=== PATIENT | male | born 1940 | race Caucasian/White ===

== ENCOUNTER → 2019-03-20 | Outpatient (CLI) | payer MEDICARE | LOC: CARD 10:02 | PROVIDERS: ATTEND Family Medicine | DX: Z01.810 Encounter for preprocedural cardiovascular examination (principal); I08.1 Rheumatic disorders of both mitral and tricuspid valves | CPT/HCPCS: 93306 ==

== ENCOUNTER → 2019-04-27 | Outpatient (CLI) | payer MEDICARE, BC ==
--- NOTE | 2019-04-27 10:55 | Diagnostic Imaging Report ---
CLINICAL INDICATION: Patient with right shoulder pain. EXAM: X-ray of the shoulder, three views. COMPARISON: None. FINDINGS: There is no acute fracture or dislocation. There are small chronic appearing calcifications seen lateral and superior to the right humeral head which may be related to calcific tendinitis or chronic soft tissue calcifications. There is significant bony irregularity involving the proximal humeral tuberosity region. Bone anchors are seen involving the proximal humerus from postop changes. There is narrowing of the interval between the humeral head and acromion. There is lateral spurring of the right acromion. There is inferior spurring of the lateral aspect of the right clavicle. There are degenerative spurs involving the glenoid. IMPRESSION: 1: There is no acute fracture or dislocation. 2: Postop changes to the right shoulder are noted. 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 Dictated by: Dictated on workstation # [id number]
== END ==
LOC: RAD FS 10:27
PROVIDERS: ATTEND Nurse Practitioner
DX: M19.011 Primary osteoarthritis, right shoulder (principal)
CPT/HCPCS: 73030

== ENCOUNTER → 2019-05-19 | Outpatient (CLI) | payer MEDICARE, BC ==
--- NOTE | 2019-05-19 17:05 | Diagnostic Imaging Report ---
EXAMINATION: Magnetic resonance imaging of the right shoulder without contrast. DATE: May 19, 2019. COMPARISON: Right shoulder radiographs April 27, 2019. HISTORY: 78-year-old male, chronic right shoulder pain. TECHNIQUE: Magnetic Resonance Imaging sequences were performed of the shoulder without contrast. FINDINGS: ROTATOR CUFF, LIGAMENTS, TENDONS, AND MUSCLES: There are procedural tracks in the distribution of the supraspinatus tendon insertion likely relating to prior rotator cuff tendon repair. There are full thickness full width tears of both the supraspinatus and infraspinatus tendons. The teres minor tendon is intact. The subscapularis tendon is grossly intact. There is severe fatty atrophy of the supraspinatus and infraspinatus muscles. LONG HEAD OF BICEPS: There is nonvisualization of the long head of biceps tendon within its intra-articular segment. The biceps tendon is present within the bicipital groove. The long head of biceps tendon may be potentially torn and retracted at this level. Correlation for potential biceps tenodesis may be helpful, as well. GLENOHUMERAL JOINT: There is very limited labral evaluation on this exam given lack of fluid sensitive axial sequence. There is no obvious labral tear. There is likely some blunting and degenerative related labral change. There is mild generalized glenohumeral cartilage thinning. The humeral head is superiorly subluxed. There is no identified paralabral cyst. There is no joint effusion. ACROMIOCLAVICULAR JOINT: The acromioclavicular joint is normally aligned. There is productive bone formation in the distribution of the coracoclavicular ligament compatible with sequela from remote prior injury. There are mild to moderate acromioclavicular degenerative changes without large undersurface osteophyte. BONE: There is no os acromiale. There is no acute fracture, bone contusion, or evidence of osteonecrosis. BURSAE AND SOFT TISSUES: The bursae and soft tissue surrounding the shoulder are unremarkable. IMPRESSION: 1. Full-thickness full width tears of the supraspinatus and infraspinatus tendons with severe fatty atrophy of both muscles. 2. Lack of visualization of the intra-articular segment of the long head of biceps tendon which may be torn and retracted within the bicipital groove. Correlation for potential biceps tenodesis also recommended. 3. Mild to moderate acromioclavicular degenerative changes without large undersurface osteophyte. 4. Mild glenohumeral arthritis. No glenohumeral joint effusion. The humeral head is superiorly subluxed. 5. No acute fracture, bone contusion, or evidence of osteonecrosis. Dictated by: Dictated on workstation # [id number]
== END ==
LOC: RAD 14:22
PROVIDERS: ATTEND Nurse Practitioner
DX: M19.011 Primary osteoarthritis, right shoulder (principal); M75.101 Unspecified rotator cuff tear or rupture of right shoulder, not specified as traumatic; Z98.890 Other specified postprocedural states
CPT/HCPCS: 73221

== ENCOUNTER → 2019-10-20 | Outpatient (CLI) | payer MEDICARE, BC ==
[2019-10-20 11:07] LABS: ALBUMIN 4.4 GM/DL (3.2-4.5); BILIRUBIN,TOTAL 0.4 MG/DL (0.1-1.0); CALCIUM 9.5 MG/DL (8.5-10.1); CREATININE SERUM 2.08 MG/DL (0.60-1.30); POTASSIUM 4.6 MMOL/L (3.6-5.0); TOTAL PROTEIN 6.9 GM/DL (6.4-8.2)
== END ==
LOC: LAB FS 10:09
PROVIDERS: ATTEND Family Medicine
DX: E78.5 Hyperlipidemia, unspecified (principal)
CPT/HCPCS: 36415; 80053; 80061

== ENCOUNTER → 2020-04-22 | Outpatient (CLI) | payer MEDICARE, BC ==
[2020-04-22 11:28] LABS: BILIRUBIN,TOTAL 0.4 MG/DL (0.1-1.0); CALCIUM 9.3 MG/DL (8.5-10.1); CREATININE SERUM 1.87 MG/DL (0.60-1.30); POTASSIUM 4.3 MMOL/L (3.6-5.0)
[2020-04-22 11:29] LABS: ALBUMIN 4.1 GM/DL (3.2-4.5); TOTAL PROTEIN 6.6 GM/DL (6.4-8.2)
== END ==
LOC: LAB FS 09:34
PROVIDERS: ATTEND Family Medicine
DX: E78.00 Pure hypercholesterolemia, unspecified (principal); R73.9 Hyperglycemia, unspecified
CPT/HCPCS: 36415; 80053; 80061; 83036

== ENCOUNTER → 2020-07-05 | Outpatient (CLI) | payer MEDICARE, BC ==
[2020-07-05 13:43] LABS: BILIRUBIN,URINE NEGATIVE (NEGATIVE); CLARITY,URINE CLEAR; COLOR,URINE YELLOW; GLUCOSE, URINE (UA) NEGATIVE (NEGATIVE); KETONES,URINE NEGATIVE (NEGATIVE); LEUKOCYTE ESTERASE ,URINE NEGATIVE (NEGATIVE); NITRITE,URINE NEGATIVE (NEGATIVE); PH,URINE NEG (5-9); PROTEIN,URINE NEGATIVE (NEGATIVE); SQUAMOUS EPITHELIAL CELL,UR RARE /HPF
[2020-07-05 13:47] LABS: HEMOGLOBIN 12.6 G/DL (13.3-17.7); MEAN PLATELET VOLUME 9.5 FL (7.4-10.4); WHITE BLOOD COUNT 5.5 10^3/uL (4.3-11.0)
[2020-07-05 15:29] LABS: PHOSPHORUS 3.4 MG/DL (2.3-4.7)
[2020-07-05 15:32] LABS: URIC ACID 7.6 MG/DL (2.6-7.2)
[2020-07-05 15:52] LABS: POTASSIUM 4.2 MMOL/L (3.6-5.0)
[2020-07-05 15:53] LABS: ALBUMIN 4.3 GM/DL (3.2-4.5); CREATININE SERUM 1.81 MG/DL (0.60-1.30); MAGNESIUM 2.2 MG/DL (1.6-2.4)
[2020-07-05 23:00] LABS: URINE CREATININE FOR RATIO 19 MG/DL (30-125)
[2020-07-05 23:01] LABS: URINE PROTEIN FOR RATIO ONLY < 6 MG/DL (6-12)
== END ==
LOC: LAB FS 13:09
PROVIDERS: ATTEND Family Medicine
DX: I12.9 Hypertensive chronic kidney disease with stage 1 through stage 4 chronic kidney disease, or unspecified chronic kidney disease (principal); N18.30 Chronic kidney disease, stage 3 unspecified; N14.0 Analgesic nephropathy; E55.9 Vitamin D deficiency, unspecified; R60.9 Edema, unspecified
CPT/HCPCS: 36415; 80069; 81000; 82306; 82570; 83735; 83970; 84156; 84550; 85027

== ENCOUNTER → 2020-10-24 | Outpatient (CLI) | payer MEDICARE, BC ==
[2020-10-24 09:21] LABS: POTASSIUM 4.1 MMOL/L (3.6-5.0)
[2020-10-24 09:22] LABS: ALBUMIN 4.2 GM/DL (3.2-4.5); BILIRUBIN,TOTAL 0.4 MG/DL (0.1-1.0); CALCIUM 9.1 MG/DL (8.5-10.1); TOTAL PROTEIN 6.6 GM/DL (6.4-8.2)
== END ==
LOC: LAB FS 08:19
PROVIDERS: ATTEND Family Medicine
DX: I10 Essential (primary) hypertension (principal); R73.9 Hyperglycemia, unspecified
CPT/HCPCS: 36415; 80053; 80061; 83036

== ENCOUNTER → 2021-01-11 | Outpatient (CLI) | payer MEDICARE, BC ==
[2021-01-11 10:53] LABS: HEMATOCRIT 36 % (40-54); HEMOGLOBIN 12.3 G/DL (13.3-17.7); MEAN CORPUSCULAR HEMOGLOBIN 32 PG (25-34); MEAN CORPUSCULAR HGB CONC 34 G/DL (32-36); MEAN CORPUSCULAR VOLUME 93 FL (80-99); MEAN PLATELET VOLUME 9.8 FL (7.4-10.4); PLATELET COUNT 254 10^3/uL (130-400); WHITE BLOOD COUNT 6.4 10^3/uL (4.3-11.0)
[2021-01-11 10:57] LABS: BACTERIA,URINE NEGATIVE /HPF; BILIRUBIN,URINE NEGATIVE (NEGATIVE); CLARITY,URINE CLEAR; COLOR,URINE YELLOW; GLUCOSE, URINE (UA) NEGATIVE (NEGATIVE); KETONES,URINE NEGATIVE (NEGATIVE); LEUKOCYTE ESTERASE ,URINE NEGATIVE (NEGATIVE); NITRITE,URINE NEGATIVE (NEGATIVE); PROTEIN,URINE NEGATIVE (NEGATIVE)
[2021-01-11 11:10] LABS: ALBUMIN 4.2 GM/DL (3.2-4.5); CALCIUM 9.7 MG/DL (8.5-10.1); CREATININE SERUM 2.44 MG/DL (0.60-1.30); MAGNESIUM 2.1 MG/DL (1.6-2.4); POTASSIUM 4.5 MMOL/L (3.6-5.0)
[2021-01-11 15:01] LABS: PHOSPHORUS 4.1 MG/DL (2.3-4.7); URIC ACID 8.7 MG/DL (2.6-7.2)
== END ==
LOC: LAB FS 10:24
DX: D63.1 Anemia in chronic kidney disease (principal)
CPT/HCPCS: 36415; 80069; 81000; 82306; 82570; 82728; 83540; 83550; 83735; 83970; 84156; 84550; 85027

== ENCOUNTER → 2021-03-15 | Outpatient (CLI) | payer MEDICARE, BC ==
[2021-03-15 11:40] LABS: ALBUMIN 4.2 GM/DL (3.2-4.5); CALCIUM 9.3 MG/DL (8.5-10.1); CREATININE SERUM 2.15 MG/DL (0.60-1.30); POTASSIUM 4.6 MMOL/L (3.6-5.0)
[2021-03-15 15:32] LABS: PHOSPHORUS 2.8 MG/DL (2.3-4.7)
== END ==
LOC: LAB FS 10:33
PROVIDERS: ATTEND Internal Medicine Nephrology
DX: N14.0 Analgesic nephropathy (principal); I12.9 Hypertensive chronic kidney disease with stage 1 through stage 4 chronic kidney disease, or unspecified chronic kidney disease; N18.32 Chronic kidney disease, stage 3b; E55.9 Vitamin D deficiency, unspecified; R60.9 Edema, unspecified; Z68.33 Body mass index [BMI] 33.0-33.9, adult
CPT/HCPCS: 36415; 80069

== ENCOUNTER → 2021-05-02 | Outpatient (CLI) | payer MEDICARE, BC ==
[2021-05-02 11:59] LABS: POTASSIUM 4.7 MMOL/L (3.6-5.0)
[2021-05-02 12:00] LABS: ALBUMIN 4.3 GM/DL (3.2-4.5); BILIRUBIN,TOTAL 0.4 MG/DL (0.1-1.0); CALCIUM 9.3 MG/DL (8.5-10.1); CREATININE SERUM 2.12 MG/DL (0.60-1.30); TOTAL PROTEIN 6.7 GM/DL (6.4-8.2)
== END ==
LOC: LAB FS 10:27
PROVIDERS: ATTEND Family Medicine
DX: I10 Essential (primary) hypertension (principal)
CPT/HCPCS: 36415; 80053; 80061

== ENCOUNTER → 2021-05-15 | Outpatient (CLI) | payer MEDICARE, BC ==
[2021-05-15 10:55] LABS: BILIRUBIN,URINE NEGATIVE (NEGATIVE); CLARITY,URINE CLEAR; COLOR,URINE YELLOW; GLUCOSE, URINE (UA) NEGATIVE (NEGATIVE); KETONES,URINE TRACE (NEGATIVE); LEUKOCYTE ESTERASE ,URINE NEGATIVE (NEGATIVE); NITRITE,URINE NEGATIVE (NEGATIVE); PROTEIN,URINE NEGATIVE (NEGATIVE)
[2021-05-15 11:02] LABS: POTASSIUM 4.5 MMOL/L (3.6-5.0)
[2021-05-15 11:03] LABS: ALBUMIN 4.4 GM/DL (3.2-4.5); CALCIUM 9.4 MG/DL (8.5-10.1); CREATININE SERUM 2.47 MG/DL (0.60-1.30); HEMATOCRIT 41 % (40-54); HEMOGLOBIN 13.3 g/dL (13.3-17.7); MAGNESIUM 2.3 MG/DL (1.6-2.4); MEAN CORPUSCULAR HEMOGLOBIN 31 pg (25-34); MEAN CORPUSCULAR HGB CONC 33 g/dL (32-36); MEAN CORPUSCULAR VOLUME 95 fL (80-99); WHITE BLOOD COUNT 6.4 10^3/uL (4.3-11.0)
[2021-05-15 11:04] LABS: MEAN PLATELET VOLUME 9.7 fL (9.0-12.2); PLATELET COUNT 261 10^3/uL (130-400)
[2021-05-15 11:09] LABS: BACTERIA,URINE NEGATIVE /HPF; SQUAMOUS EPITHELIAL CELL,UR RARE /HPF; WBC,URINE RARE /HPF
[2021-05-15 15:07] LABS: PHOSPHORUS 3.3 MG/DL (2.3-4.7)
[2021-05-15 15:09] LABS: URIC ACID 8.8 MG/DL (2.6-7.2)
== END ==
LOC: LAB FS 09:54
PROVIDERS: ATTEND Internal Medicine Nephrology
DX: N14.0 Analgesic nephropathy (principal); I12.9 Hypertensive chronic kidney disease with stage 1 through stage 4 chronic kidney disease, or unspecified chronic kidney disease; N18.32 Chronic kidney disease, stage 3b; E55.9 Vitamin D deficiency, unspecified; Z68.33 Body mass index [BMI] 33.0-33.9, adult
CPT/HCPCS: 36415; 80069; 81000; 82306; 82570; 83735; 83970; 84156; 84550; 85027

== ENCOUNTER → 2021-06-21 | Outpatient (CLI) | payer MEDICARE, BC ==
--- NOTE | 2021-06-21 14:48 | Diagnostic Imaging Report ---
INDICATION: Left hip pain. TIME OF EXAM: 2:17 PM. COMPARISON: No prior studies are available for comparison. 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 The prosthetic elements are in good position without fracture or loosening. 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 No fractures are seen. IMPRESSION: 1. The postop appearance of the left hip appears normal. 2. 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 Dictated by: Dictated on workstation # [id number]
== END ==
LOC: RAD FS 14:00
PROVIDERS: ATTEND Family Medicine
DX: M25.552 Pain in left hip (principal)
CPT/HCPCS: 73502

== ENCOUNTER → 2021-07-31 | Outpatient (CLI) | payer MEDICARE, BC ==
[2021-07-31 10:33] LABS: CALCIUM 9.5 MG/DL (8.5-10.1); CREATININE SERUM 2.28 MG/DL (0.60-1.30); POTASSIUM 4.6 MMOL/L (3.6-5.0)
== END ==
LOC: LAB FS 09:12
PROVIDERS: ATTEND Nurse Practitioner Family
DX: I12.9 Hypertensive chronic kidney disease with stage 1 through stage 4 chronic kidney disease, or unspecified chronic kidney disease (principal); N18.32 Chronic kidney disease, stage 3b; N14.0 Analgesic nephropathy; E55.9 Vitamin D deficiency, unspecified; Z68.33 Body mass index [BMI] 33.0-33.9, adult
CPT/HCPCS: 36415; 80048

== ENCOUNTER → 2021-09-01 | Outpatient (CLI) | payer MEDICARE, BC ==
[2021-09-01 11:46] LABS: HEMATOCRIT 40 % (40-54); HEMOGLOBIN 13.4 g/dL (13.3-17.7); MEAN CORPUSCULAR HEMOGLOBIN 31 pg (25-34); MEAN CORPUSCULAR HGB CONC 34 g/dL (32-36); MEAN CORPUSCULAR VOLUME 93 fL (80-99); PLATELET COUNT 298 10^3/uL (130-400); WHITE BLOOD COUNT 6.9 10^3/uL (4.3-11.0)
[2021-09-01 11:47] LABS: BILIRUBIN,URINE NEGATIVE (NEGATIVE); CLARITY,URINE CLEAR; COLOR,URINE YELLOW; GLUCOSE, URINE (UA) NEGATIVE (NEGATIVE); KETONES,URINE NEGATIVE (NEGATIVE); LEUKOCYTE ESTERASE ,URINE NEGATIVE (NEGATIVE); NITRITE,URINE NEGATIVE (NEGATIVE); PROTEIN,URINE TRACE (NEGATIVE)
[2021-09-01 11:56] LABS: WBC,URINE RARE /HPF
[2021-09-01 11:57] LABS: BACTERIA,URINE MODERATE /HPF; HYALINE CASTS, URINE 0-2 /LPF; SQUAMOUS EPITHELIAL CELL,UR RARE /HPF
[2021-09-01 12:01] LABS: CREATININE SERUM 2.04 MG/DL (0.60-1.30); POTASSIUM 4.6 MMOL/L (3.6-5.0)
[2021-09-01 12:02] LABS: ALBUMIN 4.5 GM/DL (3.2-4.5); CALCIUM 9.5 MG/DL (8.5-10.1); MAGNESIUM 2.1 MG/DL (1.6-2.4)
[2021-09-01 15:01] LABS: PHOSPHORUS 3.1 MG/DL (2.3-4.7)
[2021-09-01 15:04] LABS: URIC ACID 8.4 MG/DL (2.6-7.2)
== END ==
LOC: LAB FS 11:08
PROVIDERS: ATTEND Internal Medicine Nephrology
DX: E55.9 Vitamin D deficiency, unspecified (principal); I12.9 Hypertensive chronic kidney disease with stage 1 through stage 4 chronic kidney disease, or unspecified chronic kidney disease; N18.32 Chronic kidney disease, stage 3b; N14.0 Analgesic nephropathy
CPT/HCPCS: 36415; 80069; 81000; 82306; 82570; 83735; 83970; 84156; 84550; 85027; 87088

== ENCOUNTER 2021-09-22 18:41 | Emergency (ER) | payer MEDICARE, BC ==
--- NOTE | 2021-09-22 18:44 | ED Fall/Injury ---
General Stated Complaint: FALL,HIT HEAD History of Present Illness Date Seen by Provider: Sep 22, 2021 Time Seen by Provider: 18:44 Initial Comments 80-year-old female brought in following a fall. Patient reports he slipped going up to stairs. He "kind of slid down the stairs" patient reports that he hit his head has a small contusion on the right side of his head, has pain in his right shoulder his right ribs. Reports that he hit some concrete. No loss of consciousness. Patient states that maybe he has some mild tenderness but no real neck tenderness, no midline tenderness. He reports that the pain in his shoulders mild and he has full range of motion but he does have some pain there.. Allergies and Home Medications Allergies Coded Allergies: No Known Drug Allergies (Unverified , 09/22/21) Patient Home Medication List Home Medication List Reviewed: Yes Review of Systems Review of Systems Constitutional: see HPI; No chills, No fever Eyes: No Symptoms Reported Ears, Nose, Mouth, Throat: no symptoms reported Respiratory: no symptoms reported Cardiovascular: no symptoms reported Genitourinary: no symptoms reported Musculoskeletal: see HPI Skin: see HPI Psychiatric/Neurological: Denies Headache, Denies Numbness, Denies Paresthesia, Denies Weakness Physical Exam Vital Signs Vital Signs - First Documented 09/22/21 18:41 Temp 36.1 Pulse 87 Resp 18 B/P (MAP) 177/86 (116) Pulse Ox 96 O2 Delivery Room Air Capillary Refill : Height, Weight, BMI Height: '" Weight: lbs. oz. kg; BMI Method: General Appearance: WD/WN, no apparent distress Neck: full range of motion, supple, tender lateral (Very minimal); No tender midline Cardiovascular: normal peripheral pulses Respiratory: lungs clear, normal breath sounds, other (Mild tenderness to palpation right lower ribs) Gastrointestinal: non tender, soft Extremities: normal range of motion, non-tender, other (Tenderness to palpation right shoulder) Neurologic/Psychiatric: alert, normal mood/affect, oriented x 3 Skin: other (Small abrasion on the right side of his scalp with small contusion ) Patton Coma Score Best Eye Response: (4) Open Spontaneously Best Verbal Response: (5) Oriented Best Motor Response: (6) Obeys Commands Progress/Results/Core Measures Results/Orders My Orders Orders - BOYD,WM L DO Ct Head/Cervical Spine Wo (09/22/21 18:45) Ribs/Unilateral With Chest (09/22/21 18:45) Shoulder 2 View Right (09/22/21 18:45) Vital Signs/I&O 09/22/21 18:41 Temp 36.1 Pulse 87 Resp 18 B/P (MAP) 177/86 (116) Pulse Ox 96 O2 Delivery Room Air Progress Progress Note : Progress Note Patient with negative CT head, CT cervical spine, shoulder x-ray and rib and chest x-ray. Patient with contusions. Discussed supportive care with him and he will be discharged home to follow-up with her primary care provider as an Diagnostic Imaging Diagonstic Imaging: CT Plain Films/CT/US/NM/MRI: c-spine, head Comments Date of Exam:09/22/21 CT HEAD/CERVICAL SPINE WO EXAMINATION: CT head and CT cervical spine without contrast. TECHNIQUE: Multiple contiguous axial images were obtained through the brain and cervical spine without the use of intravenous contrast. Sagittal and coronal reformations through the cervical spine were then performed. All CT scans use one or more of the following dose optimizing techniques: automated exposure control, MA and/or KvP adjustment based on patient size and exam type or iterative reconstruction. HISTORY: Head and neck pain after fall. COMPARISON: None available. FINDINGS: HEAD: The ventricles and sulci are normal. No abnormal attenuation of brain parenchyma is present. No acute intracranial hemorrhage or abnormal extra-axial fluid collections are present. No hyperdense vessel. The calvarium is intact. The mastoid air cells are clear. The visualized paranasal sinuses are clear. Surgical changes from bilateral cataract repair. C-SPINE: Vertebral body height and alignment are preserved. No acute fracture, dislocation or destructive osseous process. Facet hypertrophy without perched facets. Cervical spondylosis. The paraspinous soft tissues are normal. The visualized thyroid gland is normal. The visualized lung apices are normal. IMPRESSION: 1. No acute intracranial abnormality. 2. Degenerative changes of the cervical spine without acute osseous abnormality. Reviewed: Reviewed by Me, Reviewed/Discussed Diagonstic Imaging: Xray Plain Films/CT/US/NM/MRI: chest Comments Date of Exam:09/22/21 RIBS/UNILATERAL WITH CHEST INDICATION: Pain after fall. FINDINGS: The heart size is normal. The lungs are clear. There is no pleural effusion or pneumothorax. The mediastinum is unremarkable. There are no displaced rib fractures. IMPRESSION: 1. No acute cardiopulmonary abnormality. 2. No displaced rib fractures. Reviewed: Reviewed by Me, Reviewed/Discussed Diagonstic Imaging: Xray Plain Films/CT/US/NM/MRI: other Comments Date of Exam:09/22/21 SHOULDER 2 VIEW RIGHT INDICATION: Pain after fall. FINDINGS: There are severe osteophytic changes in the right shoulder. There are also postsurgical changes. There is no acute fracture or dislocation. Right lung is clear. Soft tissues are unremarkable. IMPRESSION: Severe degenerative changes in the right shoulder with postsurgical changes as well, as described. Reviewed: Reviewed by Me, Reviewed/Discussed Departure Impression Primary Impression: Fall from steps Qualified Codes: W10.9XXA - Fall (on) (from) unspecified stairs and steps, initial encounter Additional Impressions: Contusion of shoulder, right Qualified Codes: S40.011A - Contusion of right shoulder, initial encounter Contusion of rib on right side Qualified Codes: S20.211A - Contusion of right front wall of thorax, initial encounter Contusion of scalp, initial encounter Disposition: 01 HOME, SELF-CARE Condition: Stable Departure-Patient Inst. Referrals: VIOLETTA LARA MD (PCP/Family) Primary Care Physician Patient Instructions: Taking Care of Bruises, Minor Contusion ED, Minor Head Injury, Adult ED Add. Discharge Instructions: Tylenol ibuprofen as needed for discomfort Follow-up with your primary care provider as needed WM BOYD DO Sep 22, 2021 18:44
--- NOTE | 2021-09-22 19:13 | Diagnostic Imaging Report ---
INDICATION: Pain after fall. FINDINGS: The heart size is normal. The lungs are clear. There is no pleural effusion or pneumothorax. The mediastinum is unremarkable. There are no displaced rib fractures. IMPRESSION: 1. No acute cardiopulmonary abnormality. 2. No displaced rib fractures. Dictated by: Dictated on workstation # [id number]
--- NOTE | 2021-09-22 19:13 | Diagnostic Imaging Report ---
INDICATION: Pain after fall. FINDINGS: There are severe osteophytic changes in the right shoulder. There are also postsurgical changes. There is no acute fracture or dislocation. Right lung is clear. Soft tissues are unremarkable. IMPRESSION: Severe degenerative changes in the right shoulder with postsurgical changes as well, as described. Dictated by: Dictated on workstation # [id number]
--- NOTE | 2021-09-22 19:15 | Diagnostic Imaging Report ---
EXAMINATION: CT head and CT cervical spine without contrast. TECHNIQUE: Multiple contiguous axial images were obtained through the brain and cervical spine without the use of intravenous contrast. Sagittal and coronal reformations through the cervical spine were then performed. All CT scans use one or more of the following dose optimizing techniques: automated exposure control, MA and/or KvP adjustment based on patient size and exam type or iterative reconstruction. HISTORY: Head and neck pain after fall. COMPARISON: None available. FINDINGS: HEAD: The ventricles and sulci are normal. No abnormal attenuation of brain parenchyma is present. No acute intracranial hemorrhage or abnormal extra-axial fluid collections are present. No hyperdense vessel. The calvarium is intact. The mastoid air cells are clear. The visualized paranasal sinuses are clear. Surgical changes from bilateral cataract repair. C-SPINE: Vertebral body height and alignment are preserved. No acute fracture, dislocation or destructive osseous process. Facet hypertrophy without perched facets. Cervical spondylosis. The paraspinous soft tissues are normal. The visualized thyroid gland is normal. The visualized lung apices are normal. IMPRESSION: 1. No acute intracranial abnormality. 2. Degenerative changes of the cervical spine without acute osseous abnormality. Dictated by: Dictated on workstation # [id number]
[2021-09-22 19:31] VITALS: BP 177/86
== END 2021-09-22 19:42 | disposition home or self-care (01) ==
LOC: EDUNIT# 18:41 → ER FS 18:42
DX: S01.01XA Laceration without foreign body of scalp, initial encounter (principal); S20.211A Contusion of right front wall of thorax, initial encounter; S40.011A Contusion of right shoulder, initial encounter; W10.9XXA Fall (on) (from) unspecified stairs and steps, initial encounter; W22.8XXA Striking against or struck by other objects, initial encounter
CPT/HCPCS: 70450; 71101; 72125; 73030

== ENCOUNTER → 2022-01-16 | Outpatient (CLI) | payer MEDICARE, BC ==
[2022-01-16 11:49] LABS: POTASSIUM 4.6 MMOL/L (3.6-5.0)
[2022-01-16 11:50] LABS: ALBUMIN 4.2 GM/DL (3.2-4.5); BILIRUBIN,TOTAL 0.3 MG/DL (0.1-1.0); CALCIUM 9.6 MG/DL (8.5-10.1); CREATININE SERUM 2.37 MG/DL (0.60-1.30); TOTAL PROTEIN 6.9 GM/DL (6.4-8.2)
[2022-01-16 15:14] LABS: CHOLESTEROL 177 MG/DL (< 200); HDL CHOLESTEROL 27 MG/DL (40-60); TRIGLYCERIDES 239 MG/DL (<150); VLDL CHOLESTEROL 48 MG/DL (5-40)
== END ==
LOC: LAB FS 10:29
PROVIDERS: ATTEND Family Medicine
DX: I12.9 Hypertensive chronic kidney disease with stage 1 through stage 4 chronic kidney disease, or unspecified chronic kidney disease (principal); N18.9 Chronic kidney disease, unspecified; E78.5 Hyperlipidemia, unspecified
CPT/HCPCS: 36415; 80053; 80061

== ENCOUNTER → 2022-01-16 | Outpatient (CLI) | payer MEDICARE, BC ==
[2022-01-16 10:52] LABS: HEMATOCRIT 37 % (40-54); HEMOGLOBIN 12.4 g/dL (13.3-17.7); MEAN CORPUSCULAR HEMOGLOBIN 31 pg (25-34); MEAN CORPUSCULAR HGB CONC 34 g/dL (32-36); MEAN CORPUSCULAR VOLUME 91 fL (80-99); MEAN PLATELET VOLUME 9.2 fL (9.0-12.2); PLATELET COUNT 328 10^3/uL (130-400); WHITE BLOOD COUNT 6.6 10^3/uL (4.3-11.0)
[2022-01-16 11:39] LABS: POTASSIUM 4.6 MMOL/L (3.6-5.0)
[2022-01-16 11:40] LABS: ALBUMIN 4.2 GM/DL (3.2-4.5); CALCIUM 9.6 MG/DL (8.5-10.1); CREATININE SERUM 2.37 MG/DL (0.60-1.30); MAGNESIUM 2.1 MG/DL (1.6-2.4)
[2022-01-16 15:13] LABS: PHOSPHORUS 3.6 MG/DL (2.3-4.7); URIC ACID 9.4 MG/DL (2.6-7.2)
== END ==
LOC: LAB FS 10:23
PROVIDERS: ATTEND Internal Medicine Nephrology
DX: N14.0 Analgesic nephropathy (principal); I12.9 Hypertensive chronic kidney disease with stage 1 through stage 4 chronic kidney disease, or unspecified chronic kidney disease; N18.32 Chronic kidney disease, stage 3b; E79.0 Hyperuricemia without signs of inflammatory arthritis and tophaceous disease; E55.9 Vitamin D deficiency, unspecified; R60.9 Edema, unspecified; Z68.32 Body mass index [BMI] 32.0-32.9, adult
CPT/HCPCS: 36415; 80069; 82306; 83735; 84100; 84550; 85027

== ENCOUNTER → 2022-02-21 | Outpatient (CLI) | payer MEDICARE, BC ==
[2022-02-21 10:56] LABS: HEMATOCRIT 37 % (40-54); HEMOGLOBIN 12.4 g/dL (13.3-17.7); MEAN CORPUSCULAR HEMOGLOBIN 31 pg (25-34); MEAN CORPUSCULAR HGB CONC 34 g/dL (32-36); MEAN CORPUSCULAR VOLUME 92 fL (80-99); MEAN PLATELET VOLUME 9.1 fL (9.0-12.2); PLATELET COUNT 202 10^3/uL (130-400); WHITE BLOOD COUNT 5.5 10^3/uL (4.3-11.0)
[2022-02-21 11:21] LABS: POTASSIUM 4.7 MMOL/L (3.6-5.0)
[2022-02-21 11:22] LABS: CALCIUM 9.3 MG/DL (8.5-10.1); CREATININE SERUM 1.97 MG/DL (0.60-1.30)
[2022-02-21 15:16] LABS: PHOSPHORUS 3.2 MG/DL (2.3-4.7); URIC ACID 6.9 MG/DL (2.6-7.2)
== END ==
LOC: LAB FS 10:35
PROVIDERS: ATTEND Nurse Practitioner Family
DX: N14.0 Analgesic nephropathy (principal); I12.9 Hypertensive chronic kidney disease with stage 1 through stage 4 chronic kidney disease, or unspecified chronic kidney disease; N18.4 Chronic kidney disease, stage 4 (severe); R60.9 Edema, unspecified; E55.9 Vitamin D deficiency, unspecified; E79.0 Hyperuricemia without signs of inflammatory arthritis and tophaceous disease; Z68.31 Body mass index [BMI] 31.0-31.9, adult
CPT/HCPCS: 36415; 80069; 84550; 85027

== ENCOUNTER → 2022-05-11 | Outpatient (CLI) | payer MEDICARE, BC ==
[2022-05-11 10:32] LABS: HEMATOCRIT 38 % (40-54); MEAN CORPUSCULAR HEMOGLOBIN 32 pg (25-34); MEAN CORPUSCULAR HGB CONC 34 g/dL (32-36); MEAN CORPUSCULAR VOLUME 93 fL (80-99); MEAN PLATELET VOLUME 9.3 fL (9.0-12.2); PLATELET COUNT 226 10^3/uL (130-400); WHITE BLOOD COUNT 6.8 10^3/uL (4.3-11.0)
[2022-05-11 10:52] LABS: BILIRUBIN,URINE NEGATIVE (NEGATIVE); CLARITY,URINE SL CLOUDY; COLOR,URINE YELLOW; GLUCOSE, URINE (UA) NEGATIVE (NEGATIVE); KETONES,URINE NEGATIVE (NEGATIVE); LEUKOCYTE ESTERASE ,URINE NEGATIVE (NEGATIVE); NITRITE,URINE NEGATIVE (NEGATIVE); PH,URINE 5.5 (5-9); PROTEIN,URINE NEGATIVE (NEGATIVE)
[2022-05-11 11:14] LABS: AMORPHOUS SEDIMENT,UR RARE AMOR URATES /LPF; BACTERIA,URINE TRACE /HPF; HYALINE CASTS, URINE 25-50 /LPF; RBC,URINE 0-2 /HPF; SQUAMOUS EPITHELIAL CELL,UR RARE /HPF; WBC,URINE 0-2 /HPF
[2022-05-11 11:23] LABS: ALBUMIN 4.2 GM/DL (3.2-4.5); CALCIUM 9.4 MG/DL (8.5-10.1); CREATININE SERUM 2.06 MG/DL (0.60-1.30); POTASSIUM 4.3 MMOL/L (3.6-5.0)
[2022-05-11 15:25] LABS: PHOSPHORUS 3.2 MG/DL (2.3-4.7)
[2022-05-11 15:27] LABS: URIC ACID 7.3 MG/DL (2.6-7.2)
== END ==
LOC: LAB FS 09:56
PROVIDERS: ATTEND Nurse Practitioner Family
DX: N14.0 Analgesic nephropathy (principal); I12.9 Hypertensive chronic kidney disease with stage 1 through stage 4 chronic kidney disease, or unspecified chronic kidney disease; N18.4 Chronic kidney disease, stage 4 (severe); E55.9 Vitamin D deficiency, unspecified; E79.0 Hyperuricemia without signs of inflammatory arthritis and tophaceous disease; Z68.31 Body mass index [BMI] 31.0-31.9, adult
CPT/HCPCS: 36415; 80069; 81000; 82570; 82728; 83540; 83550; 83735; 83970; 84156; 84550; 85027